=== PATIENT | male | born 2000 | race Hispanic/Latino ===

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

== ENCOUNTER 2020-03-16 18:57 | Emergency (ER) | payer OTHER ==
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
== END 2020-03-16 20:36 | disposition home or self-care (01) ==
LOC: ERS 18:57
DX: S16.1XXA Strain of muscle, fascia and tendon at neck level, initial encounter (principal); V89.2XXA Person injured in unspecified motor-vehicle accident, traffic, initial encounter
CPT/HCPCS: 70450; 72125

== ENCOUNTER 2023-05-26 14:41 | Emergency (ER) | payer OTHER, SELFPAY | END 2023-05-26 16:57 | disposition home or self-care (01) | LOC: ERS 14:41 | DX: M54.2 Cervicalgia (principal); V49.40XA Driver injured in collision with unspecified motor vehicles in traffic accident, initial encounter | CPT/HCPCS: 99283 ==